=== PATIENT | female | born 1950 | race Two or more races ===

== ENCOUNTER 2024-12-25 01:12 | Inpatient (IN) | payer OTHER, SELFPAY ==
[2024-12-24 20:51] VITALS: BP 157/75
[2024-12-24 21:36] LABS: Hematocrit 40.9 % (37.0-47.0); Hemoglobin 13.5 g/dL (12.0-16.0); Mean Corp Hgb Conc. 33.0 g/dL (33.0-37.0); Mean Corpuscular Volume 87.0 fL (81.0-99.0); Nucleated Red Blood Cells % 0 %; Platelet Count 228 10^3/uL (130-400); Red Cell Dist. Width 12.4 % (11.5-14.5)
[2024-12-24 22:02] VITALS: BP 153/71
--- NOTE | 2024-12-24 22:11 | ED.GENMED ---
History of Present Illness
General
Chief Complaint: Abdominal Pain
Source: patient and family
Time Seen by Provider: 12/24/24 21:46
History of Present Illness
History of Present Illness:
This patient is a 74-year-old female presents emergency department with complaints of abdominal pain that was initially 'all over' and now is localized to the right lower quadrant. She states she was walking at the time when it started
approximately 5:30 PM. The pain is constant without exacerbating relieving factors. She denies vomiting but is quite nauseous. She denies chest pain, shortness of breath, back pain, urinary symptoms, headache, fever, chills, or other complaints.
Past History
Past History
ED Past Medical History: Hypercholesterolemia and Other (Fibroids)
ED Past Surgical History: None
Social History
Tobacco: Non-smoker
Alcohol: None
Drug: None
Personal:
Living: with family
Phy Exam
Physical Exam
Physical Exam:
GENERAL: Alert , appears uncomfortable
EYE: pupils equal and reactive
NECK: Supple, no significant adenopathy.
ENT: o/p clr, mmm.
CARDIAC: Regular rate and rhythm .
LUNGS: Clear breath sounds bilaterally, no acute respiratory distress, no wheezes/rales/rhonchi
ABDOMEN: Soft, right lower quadrant tenderness with associated suspected hernia, no r/g, no cvat
NEUROLOGICAL: Alert and oriented, no focal neuro deficits
SKIN: Warm and dry, skin intact.
MUSCULOSKELETAL: No edema, well perfused.
PSYCH: Normal and appropriate interaction.
Course
Orders/Labs/Results
Orders:
Orders
12/24/24 21:24
IV Insert/Care/Rem.- Treatment PRN
Urinalysis Reflex To Culture Urgent
Date Specimen was Collected: 12/24/24
Time Specimen was Collected: 21:24
12/24/24 21:31
Complete Blood Count/With Diff Urgent
Comprehensive Metabolic Panel Urgent
Lipase Urgent
12/24/24 22:10
0.9% Sodium Chloride 1000 ml [Nss] 1,000 ml IV BOLUS
HYDROmorphone [Dilaudid] 1 mg IV NOW STA
Ondansetron Injectable [Zofran] 4 mg IV NOW STA
12/24/24 22:11
CT Abd/pelvis W Iv Cont Urgent
Comment:
Reason For Exam: RLQ pain/swelling, t/c hernia
HYDROmorphone [Dilaudid] 1 mg .ROUTE .STK-MED ONE
12/25/24 00:09
NG Tube [GI tube insertion- Treatment] ONCE
0.9% Sodium Chloride 1000 ml [Nss] 1,000 ml IV BOLUS
Piperacillin/Tazo 3.375 Gram [Zosyn] 3.375 gram in 50 ml IV NOW
12/25/24 00:45
CR Chest Portable - 1 View Urgent
Comment:
Reason For Exam: NGT placement
Reason Study Needs to be Portable: Unable to Transport
12/25/24 00:47
Admit/Transfer Patient As Directed
Co-Sign Provider:
Level of Care: Inpatient admission
Assign to:: Medical/Surgical
Physician / Group: Bradley Carbone
Diagnosis: Left inguinal hernia, Strangulated
Reason for Hospitalization: IV medications
OR
Expected length of stay greater than two midnights?: Yes
ELOS- Estimated Length of Stay in days: 2
I certify the patient meets the requirements for IP care: Yes
12/25/24 01:04
Code Status As Directed
Resuscitation Status: Full Code
Bupivacaine Mpf 0.25% [Sensorcaine-Mpf 0.25% Vial] 60 ml .ROUTE .STK-MED ONE
12/25/24 03:33
HYDROmorphone [Dilaudid] 1 mg IV Q2HPRN PRN
Ondansetron Injectable [Zofran] 4 mg IV Q6HPRN PRN
12/25/24 03:33
Activity As Directed
Activity Level: Bedrest
Comment: Bed rest for now
Anti-embolism (YANDY) Hose As Directed
Type: Thigh high
Intake/ Output As Directed
Frequency: Per unit guidelines
Pneumatic Compression Sleeves As Directed
Type: Knee high
Vital Signs As Directed
Frequency: Per unit guidelines
DX Deep Vein Thrombosis Video Routine
12/25/24 Breakfast
NPO
Allow oral meds: No
Allow clear liquids: No
12/25/24 06:15
Basic Metabolic Panel IN AM
Complete Blood Count/No Diff IN AM
12/25/24 14:52
Urine Microscopic Reflex Cult Urgent
Abnormal Lab Results
12/24/24
21:31
Absolute Neuts (auto) 8.8 H 10^3/uL
(1.4-6.5)
Absolute Lymphs (auto) 1.0 L 10^3/uL
(1.2-3.4)
Neutrophils % 85.5 H %
(42.2-75.2)
Lymphocytes % 9.6 L %
(20.5-51.1)
Sodium 130 L mmol/L
(135-145)
Glucose 164 H mg/dl
(70-99)
12/24/24 21:31
12/24/24 21:31
Vital Signs
Initial and Last Documented VS:
Initial Vital Signs
Temp Pulse Resp BP Pulse Ox
98.6 F 78 20 157/75 98
12/24/24 20:51 12/24/24 20:51 12/24/24 20:51 12/24/24 20:51 12/24/24 20:51
Last Documented Vital Signs
Temp Pulse Resp BP Pulse Ox
98.3 F 58 18 120/52 95
12/27/24 07:30 12/27/24 07:30 12/27/24 07:30 12/27/24 07:30 12/27/24 07:30
*Pulse Oximetry
SaO2: 98
Oxygen Mode of Delivery: Room air
Patient hypoxic: no
*Critical Care Note
Total Time (30-74mins, 75-104mins- exclusive of procedures): Not Applicable
Update Note
Update Note:
Patient presents to the Emergency Department with ___right lower quadrant abdominal
Number and Complexity of Problems Addressed at the Encounter
� Chronic conditions affecting care:
� Acute Exacerbation and/or Progression of Chronic Illness:
� Differential Diagnosis includes: But not limited to appendicitis, incarcerated hernia, ovarian torsion, diverticulitis, cholecystitis, etc. etc.
Amount and/or Complexity of Data to be Reviewed and Analyzed
� I performed an independent evaluation of and my interpretation is:
EKG:
CT:(late entry 12.27 at 10:40AM) verbal report vision, incarcerated inguinal hernia with suspected early sbo
Xrays:
Laboratory Studies:(late entry 12.27 at 10:40AM) generally unremkarable, mild hypokalemia
Other:
� Review of other/old records reveals:
� Clinical information was obtained by an independent historian: Daughter Rubia is on phone and assisted with history particularly with any gaps in language.
� Prescriptions/Medications Considered but not given:
� Further testing considered but not performed:
Risk of Complications and/or Morbidity or Mortality of Patient Management
� Social determinants of health affecting care:
� Discussion with other providers (PCP, Hospitalists, Consultants, etc):
� Escalation of care including admission/observation vs risk of discharge considered: Patient just had IV placed, starting IV fluids, pain meds, antinausea medication. She is fully supine and ice pack applied to right lower
quadrant.
Reassessment, pain better, declines further pain meds here b/c she feels dizzy too. CT report verbal to me (1145pm), TT to Surgery, awaiting response.
12:21 AM case discussed with Dr. Alvarez, aware of PMH, current symptoms, CT report, etc. Recommends continued hydration, n.p.o., IV Zosyn, NG tube now, and he will operate on her first thing in the morning. Recommends admission to house provider
who I just sent a text to. I then informed patient and bedside family members of plan of care. Patient's pain is currently well-controlled. She is nauseous but not actively vomiting.
ED Attending Note
-
Portions of this chart may have been created with voice recognition software.� Occasional wrong word or��sound alike� substitutions may have occurred due to the inherent limitations of voice recognition software.
Discharge Plan
Departure
Patient Disposition: Admit
Date of Disposition: 12/25/24
Time of Disposition: 00:23
Presentation/result/management discussed w/ accepting MD/DO: barry
Condition: Fair
Discharge Problem:
Hernia with strangulation
Interventions
Interventions:
*Risk Screen - Suicide Last Done: 12/24/24 20:51
*General Assessment Last Done: 12/24/24 20:51
*Neglect/Abuse Screening Last Done: 12/24/24 20:51
*ED- Fall Risk Assessment Last Done: 12/24/24 20:51
*ED COVID-19 Vaccine History Last Done: 12/25/24 04:49
*ED Influenza Vaccine History Last Done: 12/24/24 22:42
*Nursing Disposition Last Done: 12/25/24 01:24
AC-Ojzgkm-Nktikkxfbf Assessment Last Done: 12/24/24 22:30
Discharge Date and Time
Discharge Date/Time: 12/25/24 01:24
[2024-12-24] MEDS: DILAUDID 1 MG IV (22:12)
[2024-12-24] MEDS: NSS 1000 IV (22:12)
[2024-12-24 22:13] LABS: ALT (SGPT) 15 U/L (0-35); AST (SGOT) 25 U/L (14-36); Albumin 4.4 g/dl (3.5-5.0); Alkaline Phosphatase 80 U/L (38-126); Blood Urea Nitrogen 16 mg/dl (7-17); Calcium 9.3 mg/dl (8.4-10.2); Carbon Dioxide 26 mmol/L (22-30); Chloride 102 mmol/L (98-107); Glucose 164 mg/dl (70-99); Lipase 258 U/L (23-300); Potassium 4.0 mmol/L (3.5-5.1); Sodium 130 mmol/L (135-145); Total Protein 7.0 g/dl (6.3-8.2); eGFR > 60.00
[2024-12-24] MEDS: ZOFRAN 4 MG IV (22:15)
[2024-12-24 22:42] VITALS: BMI 27.7
[2024-12-24 23:30] VITALS: BP 154/67
[2024-12-25] VITALS (13 sets, daily range): BP systolic 96–154; BP diastolic 56–72; BMI 24.8; BMI 24.4
[2024-12-25] MEDS: ZOSYN 50 IV ×4 (00:27→18:01)
--- NOTE | 2024-12-25 01:04 | W.SUR.PREOP ---
Pre-Operative Surgical Note
-
I have examined this patient prior to the performance of the scheduled procedure.
The patient's condition is unchanged from the time of the current History and
Physical and the patient is able to undergo the scheduled procedure.
--- NOTE | 2024-12-25 01:15 | HPS.HSE ---
Family Physician
-
Family Physician: Haley Campbell
Chief Complaint
-
'Abdomen pain'
History of Present Illness
74 year old patient with PMH of pre-Diabetes, Hypercholesterolemia presents to ER with the complain of abdomen pain. Patient is Thai speaking with minimal Tuvaluan, Daughter is at the bedside translating. States burning pain10/10 at the right
groin started at 5 PM today while walking associated with nausea and chills. LBM 12/24 normal stool, no vomiting, voiding without difficulty. Denies any shortness of breath, or chest pain at present. She states she has had 'this bulging' for years,
it usually comes and goes without any issue. Patient always thought it was 'fibrosis' and had made an appointment to see agriculture teacher on this Friday. During assessment Patient is with NGT, no drainage noted, Xray pending, also planning to go to OR
now. At present she has no pain at rest after receiving IV Dilaudid, but pain is exacerbated with any movement. No blood in stool, no blood in urine per patient.
Medical History
Past Medical History
Past Medical History: Reports Hypercholesterolemia and Other (Pre Diabetes)
Past Surgical History: Reports None
Social History
Tobacco: Non-smoker
Alcohol: None
Drug: None
Living: With Family
Family History
Family History: Not pertinent
Allergies / Home Medications
Allergies reflects when Allergies were last updated in [facility].
Home Medications with original date entered in [facility]
Allergy/Medication List:
Allergies
Allergy/AdvReac Type Severity Reaction Status Date / Time
amoxicillin Allergy Unknown Verified 12/24/24 20:50
Review of Systems
-
Unable to obtain full review of systems at this time due to: Language Barrier
History Source: Patient and Family
A 12 point ROS was completed and negative except as noted: Yes
Constitutional: Reports No Symptoms
EENT: Reports No Symptoms
Respiratory: Reports No Symptoms
Cardiac: Reports No Symptoms
Abdomen/GI: Reports Nausea and Pain (Right lower quadrant tenderness with hernia )
: Reports No Symptoms
Musculoskeletal: Reports No Symptoms
Skin: Reports Other (Right inguinal hernia without discoloration )
Neurological: Reports No Symptoms
Endocrine: Reports No Symptoms
Hematologic/Lymphatic: Reports No Symptoms
Psych: Reports Anxiety
Physical Exam
Vital Signs
Vital Signs
Temp Pulse Resp BP Pulse Ox
98.3 F 76 18 154/67 92
12/24/24 22:02 12/24/24 23:30 12/24/24 23:30 12/24/24 23:30 12/24/24 23:30
Physical Exam
General: Well Developed and Well Nourished
HEENT: NormoCephalic, Moist mucous membranes and Atraumatic
Respiratory: Clear and Non Labored Respirations
Cardiac: S1/S2 and Regular Rhythm
Breast: Deferred by me
GI: Soft, Normal Bowel Sounds (hypoactive ), Tender (right lower quadrant, inguinal hernia ) and Distended (mild )
Rectal: Deferred by Provider
Genito-urinary: Deferred by me
Musculoskeletal: No Clubbing and No Cyanosis
Skin: Warm and Dry
Neuro: Awake, AO x 3 and Nonfocal/grossly intact
Hematologic/Lymphatic: No Lymphadenopathy
Psych: Calm and Intact Judgment/Insight
Laboratory Results
-
12/24/24 21:31
12/24/24 21:31
Laboratory Results
Total Bilirubin 0.7 mg/dl (0.2-1.3) 12/24/24 21:31
AST 25 U/L (14-36) 12/24/24 21:31
ALT 15 U/L (0-35) 12/24/24 21:31
Alkaline Phosphatase 80 U/L (38-126) 12/24/24 21:31
Lipase 258 U/L (23-300) 12/24/24 21:31
Data Reviewed
-
CT Scan: Report Reviewed by me
Lab Data: Labs Reviewed by me
Impression/Plan
-
74 year old patient presents with abdomen pain
# Abdomen pain due to Right inguinal hernia concerning for strangulation
-CT abdomen/pelvis: Right inguinal hernia containing loop of small bowel with distention and surrounding fluid, concerning for strangulation. Fecalized loops of upstream small bowel suggestive of slow transit, versus early partial
obstruction.
-NPO
-IV Fluids
-IV Zosyn
-IV Zofran Prn
-IV Diauded prn
-NGT low intermittent-Xray pending
-Admit to Med surg Dr Carbone
-Planning to go to OR at present.
# Hypercholesteremia
- Rosuvastatin 20mg PO HS
# Pre-Diabetes
-Diet controlled
SCD's
Full Code
--- NOTE | 2024-12-25 01:22 | HPS.HSE ---
Family Physician
-
Family Physician: Haley Campbell
Chief Complaint
-
Incarcerated right inguinal hernia
History of Present Illness
This is a 74-year-old female who presents with right groin pain x 1 day in the setting of a known right groin bulge that she thought was a 'fibroid'. No other significant past medical or surgical history. The patient denies recent fever, Chest
Pain, Shortness Of Breath, Nausea, Vomiting, changes in urinary and bowel habits, unintentional weight loss, jaundice, icterus, acolic stools.
Medical History
Past Medical History
Past Medical History: Reports None
Past Surgical History: Reports None
Social History
Unable to obtain full social history at this time due to: Dementia
Tobacco: Non-smoker
Family History
Family History: Not pertinent
Allergies / Home Medications
Allergies reflects when Allergies were last updated in [facility].
Home Medications with original date entered in [facility]
Allergy/Medication List:
Listed allergy to amoxicillin.
Takes Excedrin occasionally for headaches, no prescription medications.
Review of Systems
-
A 12 point ROS was completed and negative except as noted: Yes
Physical Exam
Vital Signs
Vital Signs
Temp Pulse Resp BP Pulse Ox
98.3 F 76 18 154/67 92
12/24/24 22:02 12/24/24 23:30 12/24/24 23:30 12/24/24 23:30 12/24/24 23:30
Physical Exam
General: Well Developed
HEENT: NormoCephalic
GI: Soft and Tender (Tender to palpation in the right groin. Large bulge, nonreducible.)
Neuro: AO x 3
Laboratory Results
-
12/24/24 21:31
12/24/24 21:31
Laboratory Results
Total Bilirubin 0.7 mg/dl (0.2-1.3) 12/24/24 21:31
AST 25 U/L (14-36) 12/24/24 21:31
ALT 15 U/L (0-35) 12/24/24 21:31
Alkaline Phosphatase 80 U/L (38-126) 12/24/24 21:31
Lipase 258 U/L (23-300) 12/24/24 21:31
Data Reviewed
-
CT Scan: Image Personally Visualized and interpreted, Report Reviewed by me, Discussed with Physician, Discussed with Patient and Discussed with Family
Lab Data: Labs Reviewed by me
Impression/Plan
-
IMPRESSION:
This is a 74-year-old female who presents with an incarcerated right inguinal hernia confirmed on CT.
PLAN:
N.p.o., IV fluids, NG tube.
IV antibiotics.
Will plan for an emergent diagnostic laparoscopy, possible open, possible bowel resection.
Risks/Benefits/Alternatives, expected postoperative course and possible complications (bleeding, infection, injury to surrounding structures, acute/chronic pain) discussed at length. Patient wishes to proceed with surgery. All questions answered.
Consent obtained.
I spent 75 minutes in total for the care of this patient today including direct patient care and counseling, reviewing labs, imaging, coordination of care, as well as documentation.
--- NOTE | 2024-12-25 03:29 | W.IMMPOSTOP ---
Surgical Immed Post Op Note
-
Primary Surgeon: Bradley Carbone MD
Assisting Surgeon: None
Pre-op Diagnosis: Incarcerated right inguinal hernia
Post-op Diagnosis: Same
Procedure Performed: Laparoscopic incarcerated right inguinal hernia repair with mesh
Anesthesia Type: General
Specimen / Cultures: None
Estimated Blood Loss: 17 cc
Complications: None
Operative Findings: Was able to reduce the hernia at bedside shortly after induction. Wan placed. Began by doing a diagnostic laparoscopy with a cutdown at the umbilicus followed by two 5 mm left and right upper quadrant ports. The bowel was
run from the ligament of Treves retrograde until we found an erythematous 4 cm segment of small bowel. The bowel itself was slightly hemorrhagic but the mesentery was fairly dark and bloody. Nevertheless the bowel was peristalsing and clearly
viable so no bowel resection was undertaken. We then performed a standard laparoscopic TEP repair and after dividing the round ligament and achieving the critical view of the MPO, the space was reinforced with a large right Bard 3D max mid weight
uncoated polypropylene mesh. The pneumoperitoneum in the preperitoneal space was evacuated. We then reentered the abdomen via our 5 mm left upper quadrant port to confirm that the mesh did indeed lay flat. The abdomen was desufflated. And the
Wan was removed.
POST OP PLAN:
Imaging: None
Labs: Routine AM
Diet: N.p.o., NG tube to low intermittent wall suction
Analgesia: Tylenol 650mg q6 Linda, Dilaudid 0.5mg q2h PRN
Neuro/vascular checks: Per unit protocol
AC/AP: Hold Therapeutic AC, Ok for DVT PPx
Activity: Ad Sara
Wound/Incisions/Drains: Routine
Abx: Will continue Zosyn x 24 hours
Dispo: RNF, anticipate 3-day hospital stay at minimum.
[2024-12-25] MEDS: ZOFRAN 4 MG IV (03:55)
--- NOTE | 2024-12-25 04:15 | TRANSFER ---
late note due to pt care:
Pt transferred from PACU on bed. Bedside handoff completed with off going RN Aman. 5 lap sites approximated with surgical adhesive. SNT abd. NJT @ 59 in the R JESSIE yuan, confirmed placement via auscultation. IV in place. IVF replaced ( see mar for
details). SCDs in place (need to replace with thigh high, knee high currently active/ in use). Weight obtained on bed scale due to drowsiness r/t anesthesia, 140 lbs measured (151 lbs prev). Unable to confirm if bed was zero'd. will reweigh pt once
pt is more awake.
Pt and family updated on plan of care, including medication administration. Daughter acted as a chief inspector at pt's request. Pt and family were informed about the availability of 24-hour chief inspector services. All verbalized that they understood. Pt is
currently resting comfortably with bed in lowest position, call viveros and personal belongings within reach. All needs met at this time.
[2024-12-25] MEDS: TYLENOL PO ×2 (04:25→08:00)
[2024-12-25] MEDS: NORMOSOL-R/PLASMALYTE-A 1000 IV ×2 (04:29→18:02)
[2024-12-25 07:26] LABS: Hematocrit 37.6 % (37.0-47.0); Hemoglobin 12.8 g/dL (12.0-16.0); Mean Corp Hgb Conc. 34.0 g/dL (33.0-37.0); Mean Corpuscular Volume 85.6 fL (81.0-99.0); Platelet Count 205 10^3/uL (130-400); Red Cell Dist. Width 12.3 % (11.5-14.5)
[2024-12-25 08:01] LABS: Blood Urea Nitrogen 10 mg/dl (7-17); Calcium 8.2 mg/dl (8.4-10.2); Carbon Dioxide 25 mmol/L (22-30); Chloride 99 mmol/L (98-107); Estimated Creatinine Clearance 70 ml/min; Glucose 169 mg/dl (70-99); Potassium 3.2 mmol/L (3.5-5.1); Sodium 133 mmol/L (135-145); eGFR > 60.00
[2024-12-25] MEDS: TYLENOL 650 MG PO ×3 (10:22→20:19)
[2024-12-25] MEDS: NSS (PRESERVATIVE FREE) 10 ML IV (10:22)
[2024-12-25] MEDS: PROTONIX IV 40 MG IV (10:30)
--- NOTE | 2024-12-25 11:29 | CM ---
CM following re: discharge planning.
Reviewed pt's chart, met with pt.
Pt is a 74 year old female, admitted with primary dx of Incarcerated right inguinal hernia. s/p POD#0 Laparoscopic incarcerated right inguinal hernia repair with mesh
Pt reports she lives with 2SH, 2 steps to enter, has 2 supportive children. 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 No DME, VN or SNF history.
PCP: Haley Campbell
Pharmacy: [facility]
D/C plan: home with anticipated no needs. to transport at discharge.
CM will follow with discharge plan updates as needed.
[2024-12-25 15:02] LABS: Urine Character Clear (Clear)
[2024-12-25 15:22] LABS: Urine Red Blood Cell 0-2 /HPF (0-2); Urine Squamous Cell 0-2 /LPF (Few); Urine White Cell 0-2 /HPF (0-5)
[2024-12-25] MEDS: LOVENOX 40 MG SC (18:01)
[2024-12-25] MEDS: CRESTOR 20 MG PO (21:36)
[2024-12-26] MEDS: ZOSYN 50 IV (00:16)
[2024-12-26] MEDS: TYLENOL PO ×2 (00:53→20:56)
[2024-12-26] MEDS: TYLENOL 650 MG PO ×5 (03:25→23:35)
[2024-12-26] MEDS: NORMOSOL-R/PLASMALYTE-A 1000 IV (05:26)
[2024-12-26 07:20] VITALS: BP 94/52
[2024-12-26 08:44] LABS: Hematocrit 34.4 % (37.0-47.0); Hemoglobin 11.5 g/dL (12.0-16.0); Mean Corp Hgb Conc. 33.4 g/dL (33.0-37.0); Mean Corpuscular Volume 85.4 fL (81.0-99.0); Platelet Count 199 10^3/uL (130-400); Red Cell Dist. Width 12.8 % (11.5-14.5)
[2024-12-26 09:02] LABS: Blood Urea Nitrogen 11 mg/dl (7-17); Calcium 8.6 mg/dl (8.4-10.2); Carbon Dioxide 29 mmol/L (22-30); Chloride 107 mmol/L (98-107); Estimated Creatinine Clearance 53 ml/min; Glucose 101 mg/dl (70-99); Magnesium 2.6 mg/dl (1.6-2.3); Potassium 3.6 mmol/L (3.5-5.1); Sodium 137 mmol/L (135-145); eGFR > 60.00
[2024-12-26] MEDS: PROTONIX IV 40 MG IV (09:32)
[2024-12-26] MEDS: NSS (PRESERVATIVE FREE) 10 ML IV (09:32)
--- NOTE | 2024-12-26 10:12 | W.PN.GS2 ---
Today's Communication / Plan
-
Clear liquid diet
Assessment / Plan
-
This is a 74-year-old female postoperative day 1 from an emergent laparoscopic right inguinal hernia repair with mesh for an incarcerated right inguinal hernia. Doing well, expected postoperative course.
Advance to a clear liquid diet.
Out of bed and ambulate as able.
Pain control.
Time Spent
Total Time Spent with Patient (in minutes): 20
Subjective Data
-
Date of Service: December 26, 2024
Interval Events:
No acute events overnight. Slept well. Pain Controlled. Denies Nausea/Vomiting, +bowel function. Tolerating diet.
Objective Data
-
Intake and Output
12/25/24 12/26/24 12/27/24
06:59 06:59 06:59
Intake Total 2450 / 2450
Output Total 1625 / 1625
Balance 825 / 825
Intake:
Oral fluids 200 / 200
IV fluids (Total) 2099 / 2100
IV piggybacks 150 / 150
Output:
Urine, Voided 1625 / 1625
Other:
Number of approximated MODERATE 2
amounts of urine
Vital Signs
Temp Pulse Resp BP Pulse Ox
98.0 F 64 16 94/52 95
12/26/24 07:20 12/26/24 07:20 12/26/24 07:20 12/26/24 07:20 12/26/24 07:20
Lab Results
12/26/24 08:16
12/26/24 08:16
Calcium 8.6 mg/dl (8.4-10.2) 12/26/24 08:16
Magnesium 2.6 mg/dl (1.6-2.3) H 12/26/24 08:16
Total Bilirubin 0.7 mg/dl (0.2-1.3) 12/24/24 21:31
AST 25 U/L (14-36) 12/24/24 21:
ALT 15 U/L (0-35) 12/24/24 21:31
Alkaline Phosphatase 80 U/L (38-126) 12/24/24 21:31
Total Protein 7.0 g/dl (6.3-8.2) 12/24/24:
Albumin 4.4 g/dl (3.5-5.0) 12/24/24 21:
Physical Exam
-
GENERAL/NEURO: Awake, Alert, no distress
CHEST: Unlabored breathing on RA
ABDOMEN: Soft, Non-Tender, Non-Distended, incisions clean dry and intact. Some loki-incisional bruising noted. Mild swelling noted in the groin, expected.
Patient has a kellogg catheter: No
Patient has a central line: No
--- NOTE | 2024-12-26 10:13 | OR.RPT ---
Operative Report
Operative Report
Patient Name: Cristina Longoria
: 1950
Date of Operation: 12/25/2024
Preoperative Diagnosis: Incarcerated right inguinal hernia
Postoperative Diagnosis: Same
Procedure(s):
1. Diagnostic laparoscopy
2. Laparoscopic incarcerated right inguinal Hernia Repair, (TEP approach)
Surgeon(s):
Dr. Carbone
Computer Architect(s):
None
Anesthesia: General
Estimated Blood Loss: 17 cc
Urine Output: None
Drains/Lines/Implants: Large 3D Max Bard mid weight mesh
Specimens: None
Indication for surgery: This is a 74-year-old female who presented with an incarcerated right inguinal hernia in the setting of a known bulge in the right groin for the past year. CT scan imaging concerning for a corresponding small bowel
obstruction with fecalization of the bowel proximal to the obstruction. An NG tube was placed preoperatively and the patient was counseled and ultimately consented for emergent surgery.
Operative Findings: The hernia was reduced on the OR table shortly after induction. A 16 [place] Wan was placed. A diagnostic laparoscopy was performed via a cutdown at the umbilicus followed by two 5 mm left and right upper quadrant ports. The
bowel was run from the ligament of Treves retrograde until we found an erythematous 4 cm segment of small bowel. The bowel itself was slightly hemorrhagic but the mesentery was fairly dark and bloody. Nevertheless the bowel was peristalsing and
clearly viable so no bowel resection was undertaken. We then performed a standard laparoscopic TEP repair and after dividing the round ligament and achieving the critical view of the MPO, the space was reinforced with a large right Bard 3D max mid
weight uncoated polypropylene mesh. The pneumoperitoneum in the preperitoneal space was evacuated. We then reentered the abdomen via our 5 mm left upper quadrant port to confirm that the mesh did indeed lay flat. The abdomen was desufflated. The
Wan was removed.
Details of the operation:
After inducing general anesthesia and endotracheal intubation, the patient was prepped and draped in the supine position with both arms tucked. After infiltration with 0.25% Marcaine, a right periumbilical incision was made. Dissection was carried
down to the anterior sheath which was incised and the rectus muscle retracted laterally. The posterior rectus sheath was identified and grasped and divided. The abdomen was entered safely with a 5 mm trocar. 2 additional 5 mm ports were placed in
the right and left upper quadrants. We began by running the bowel retrograde. About 20 cm from the ligament of Treves we encountered an erythematous segment of small bowel which was clearly the herniated bowel that had been reduced. The bowel
serosa was slightly hemorrhagic but the mesentery on 1 side was particularly dark and bloody. Nevertheless, the bowel was visibly peristalsing and appeared viable so no small bowel resection was undertaken. An indirect right inguinal hernia could
be visualized, no obvious defect was noted on the left. We then proceeded with our laparoscopic TEP repair. The left upper quadrant 5 mm port was left in place. The right upper quadrant port was removed and the umbilical port was switched to a 12
mm balloon port and placed in the retrorectus space. An origin balloon was then inserted in through the posterior portion of the rectus into the preperitoneal space. This was insufflated under direct vision and blunt dissection was therefore
achieved in the preperitoneal space. Two 5-mm ports were also placed in the midline below the camera port. Blunt dissection was used to dissect the myopectineal orifice with care not to injure the epigastric vessels. Blunt dissection was used to
identify the direct, indirect, and femoral spaces.
On the right side:
There was a medium sized indirect sac which was reduced completely.
The round ligament was isolated and divided between 4 clips.
There was no cord lipoma.
There was no weakness in the direct space floor.
There was a small femoral herniation containing fat which was reduced.
All of the fat overlying the pubic bone 2 cm across and below were exposed as well as Peter's ligament.
A large 3D max mid weight mesh was then placed into position and positioned into the appropriate area to cover all 3 defects. No tacks were used.
The area was then completely infiltrated with 10 cc of Marcaine without epinephrine (0.25%). The insufflation was slowly decreased and the mesh was assured to be in proper position with desufflation. Using the left upper quadrant port we then
reestablished pneumoperitoneum and confirm that the mesh laid flat without any folds. The port was removed and pneumoperitoneum was evacuated. The umbilical trocar site was closed in 2 layers with 0 PDS suture in a [id number]-[id number] fashion. The
skin sites were all then closed with running subcuticular 4-0 Monocryl suture followed by dermabond. The patient returned to the recovery room in stable condition. Sponge and instrument counts were correct. No specimen sent to pathology
I was the attending physician and performed the procedure with no assistance. I was present for all portions of the case
Bradley Carbone MD
[2024-12-26] MEDS: NORMOSOL-R/PLASMALYTE-A IV (15:00)
[2024-12-26 15:15] VITALS: BP 88/59
[2024-12-26] MEDS: LOVENOX 40 MG SC (18:03)
[2024-12-26] MEDS: MOTRIN 600 MG PO (20:48)
[2024-12-26] MEDS: CRESTOR 20 MG PO (22:25)
[2024-12-26 23:27] VITALS: BP 99/50
[2024-12-27] MEDS: TYLENOL PO (04:57)
[2024-12-27 07:30] VITALS: BP 120/52
--- NOTE | 2024-12-27 08:18 | W.PN.GS2 ---
Addendum entered and electronically signed by CONNIE Frias 12/27/24 12:10:
Hyponatremia and hypokalemia present on labs from 12/25, resolved on follow up labs on 12/26 on IV normosol infusion. IVF currently d/c'd.
Original Note:
Today's Communication / Plan
-
advance diet
dispo planning
Assessment / Plan
-
This is a 74-year-old female POD #2 from an emergent laparoscopic right inguinal hernia repair with mesh for an incarcerated right inguinal hernia.
Doing well, expected postoperative course.
AFVSS
Plan:
Advance to a low residue diet
Miralax daily
Out of bed and ambulate as able
Pain control with oral agents
Ice packs prn
Anticipate discharge this afternoon if tolerating diet
Subjective Data
-
Date of Service: December 27, 2024
Pt seen and examined at bedside with Dr. Carbone. Gómez n/v. Tolerating clears. Passing a good amount of flatus, no bm as of yet. Pain minimal.
Objective Data
-
Intake and Output
12/26/24 12/27/24 12/28/24
06:59 06:59 06:59
Intake Total 2450 / 2450 480 / 480
Output Total 1625 / 1625
Balance 825 / 825 480 / 480
Intake:
Oral fluids 200 / 200 480 / 480
IV fluids (Total) 2099 / 2099
IV piggybacks 150 / 150
Output:
Urine, Voided 1625 / 1625
Other:
Number of approximated MODERATE 2
amounts of urine
Vital Signs
Temp Pulse Resp BP Pulse Ox
98.1 F 60 16 99/50 95
12/26/24 23:27 12/26/24 23:27 12/26/24 23:27 12/26/24 23:27 12/26/24 23:27
Lab Results
12/26/24 08:16
12/26/24 08:16
Calcium 8.6 mg/dl (8.4-10.2) 12/26/24 08:16
Magnesium 2.6 mg/dl (1.6-2.3) H 12/26/24 08:16
Total Bilirubin 0.7 mg/dl (0.2-1.3) 12/24/24 21:31
AST 25 U/L (14-36) 12/24/24 21:31
ALT 15 U/L (0-35) 12/24/24 21:31
Alkaline Phosphatase 80 U/L (38-126) 12/24/24 21:31
Total Protein 7.0 g/dl (6.3-8.2) 12/24/24 21:31
Albumin 4.4 g/dl (3.5-5.0) 12/24/24 21:31
Physical Exam
-
GENERAL/NEURO: Awake, Alert, no distress
CHEST: Unlabored breathing on RA
ABDOMEN: Soft, Non-Tender, Non-Distended, incisions clean dry and intact. Some loki-incisional bruising noted. Mild swelling noted in the groin, expected.
Patient has a kellogg catheter: No
Patient has a central line: No
[2024-12-27] MEDS: PROTONIX 40 MG PO (08:24)
[2024-12-27] MEDS: TYLENOL 650 MG PO ×2 (08:24→12:08)
[2024-12-27] MEDS: MIRALAX 17 GRAMS PO (08:28)
--- NOTE | 2024-12-27 09:31 | CM ---
Patient seen at bedside
Low residue diet
IMM explained & signed. In chart
PLAN: Home, no needs
to transport
--- NOTE | 2024-12-27 11:43 | PN.CDI ---
CDI
- -
CDI:
Physician Documentation Request
Admit Date: 12/25/24 01:12
Dear Surgery,
Clinical Indicators:
Patient admitted with incarcerated right inguinal hernia; s/p emergent laparoscopic right inguinal hernia repair 12/26.
IVF: NSS 1 L bolus + Normosol 100ml/hr
Sodium trend:
12/24/24 12/25/24 12/26/24
21:31 06:15 08:16
Sodium 130 L 133 L 137
Based on the above, could you clarify in the progress notes, the appropriate diagnosis, if significant, that supports the above abnormalities and additional evaluation, monitoring and/or treatment rendered:
Hyponatremia, resolved
Abnormal lab values, clinically insignificant
Other, please specify
Use of terms such as suspected, likely, concern for, or probable (associated with a specific diagnosis that is being evaluated, monitored, or treated as if it exists) are acceptable and can be coded in the inpatient setting, when documented at the
time of discharge.
Thank you,
NATALIA Nolan RN
CDI Specialist
available via tiger text
Please use your independent medical judgment in providing your response.
[2024-12-27 12:51] VITALS: BP 143/62
--- NOTE | 2024-12-27 13:04 | W.DS.TRANS ---
Addendum entered and electronically signed by CONNIE Frias 12/27/24 13:25:
dictated #[id number]
Original Note:
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
-
Discharge Instructions:
Discharge Diagnosis/Procedures Incarcerated right inguinal hernia. Laparoscopic
right inguinal hernia repair with mesh
Diet As tolerated,Low Fiber
Additional Diets Low fiber diet for the next 1-2 weeks
Activity No strenuous activity
Bathing Restrictions OK to Shower
Instructions: Low-fiber diet
Stand-Alone Forms:
Changes to Home Medications: No
Discharge Medications:
DC Medications w/original date entered in [employer]
rosuvastatin 20 mg PO HS 12/25/24
nflcuyr-weeejgmaypzns-sgiqvguv 250 mg-250 mg-65 mg tablet (Excedrin Migraine) 2 tab PO Q6H PRN migraine 12/26/24
acetaminophen 325 mg tablet 650 mg (2 x 325 mg) PO Q4HPRN PRN mild pain #1 tab 12/27/24
docusate sodium 100 mg capsule (Colace) 200 mg PO DAILY 12/27/24
ibuprofen 200 mg tablet 400 - 600 mg (2 - 3 x 200 mg) PO Q6HPRN PRN moderate pain #1 tab 12/27/24
tramadol 50 mg tablet 25 - 50 mg (0.5 - 1 x 50 mg) PO Q6HPRN PRN severe pain/breakthrough pain #8 tabs 12/27/24
Home Medication Changes
Pending Results: No
== END 2024-12-27 13:14 | disposition home or self-care (01) | DRG 351 ==
LOC: 2 SOUTH 01:12
PROVIDERS: Nurse Practitioner Family; Nurse Practitioner Gerontology; ADMITTING PHYSICIAN Surgery; EMERGENCY PHYSICIAN Emergency Medicine; FAMILY PHYSICIAN Family Medicine
PROC: 0YU54JZ Supplement Right Inguinal Region with Synthetic Substitute, Percutaneous Endoscopic Approach (ICD-10-PCS; 2024-12-26)
DX: K40.30 Unilateral inguinal hernia, with obstruction, without gangrene, not specified as recurrent (principal); E87.1 Hypo-osmolality and hyponatremia; F03.90 Unspecified dementia, unspecified severity, without behavioral disturbance, psychotic disturbance, mood disturbance, and anxiety; Z88.0 Allergy status to penicillin; E87.6 Hypokalemia; E78.00 Pure hypercholesterolemia, unspecified; R73.03 Prediabetes
CPT/HCPCS: 43752; 71045; 74177; 80048; 80053; 81003; 81015; 83690; 83735; 85025; 85027; 96365; 96375; 99285; C1781; Q9967